=== PATIENT | male | born 1960 | race Caucasian/White ===

== ENCOUNTER 2019-07-01 10:04 | Inpatient (IN) | payer BC, OTHER ==
[~2019-07-01] VITALS: Ht 180.3 cm; Wt 105.6 kg
[2019-07-01] MEDS ORDERED: NS IV 1000 ML 1,000 ML IV SCH ×2 (10:35)
--- NOTE | 2019-07-01 10:44 | ED General ---
General Stated Complaint: SHAKEY;FEVER;CONFUSION Source of Information: Patient, Spouse Exam Limitations: No Limitations History of Present Illness Date Seen by Provider: Jul 01, 2019 Time Seen by Provider: 10:25 Initial Comments Patient presents to ER by private conveyance with chief complaint about 45 days of fever, shaking, confusion. No coughing shortness of breath nausea vomiting dysuria diarrhea constipation or pain. She's been giving him Tylenol and ibuprofen [id number] and the fever tends to come back as soon as one of the medicines are do. states she took him to urgent care on Sunday, 4 days ago and he had a tick bite on his right lower abdomen so they put him on doxycycline. He was not feeling any better and had not ate or drank for the weekend so Sunday morning she got him in with Dr. Peterson who gave him Librium and got some more blood tests ordered. She says a flu test was not obtained. She is concerned with his confusion. No history of weakness or lateralizing symptoms. The patient drinks about 7 days or more beers every night. His last drink was . The does not feel the Librium helped much with his confusion. She says sometimes he would be lucid and then when the fever would come back and become shaky and his confusion would get worse. Dr. Peterson called and gave report stating that he had obtain labs showing hyponatremia 128 hyperchloremia and a white count of 10,000 from yesterday. He has not had any antipyretics this morning because he was afebrile when she checked before going to the doctor's office. A review of medical records from [facility] urgent care showed the patient was put on doxycycline but no lab tests appeared been ordered. Allergies and Home Medications Allergies Coded Allergies: No Known Drug Allergies (Unverified , 07/01/19) Patient Home Medication List Home Medication List Reviewed: Yes Review of Systems Review of Systems Constitutional: chills, diaphoresis, fever, malaise EENTM: No ear discharge, No hearing loss, No ear pain Respiratory: No cough, No short of breath Cardiovascular: No chest pain, No edema Gastrointestinal: No abdominal pain, No nausea, No vomiting Genitourinary: No discharge, No dysuria Musculoskeletal: No back pain, No joint pain Skin: see HPI; No pruritus, No rash Past Twlgnnn-Rmtgos-Rhkvqq Hx Patient Social History Alcohol Use: Regular Use Alcohol Beverage of Choice: Beer (8+ daily) Recreational Drug Use: No Smoking Status: Never a Smoker Physical Exam-Suspected Sepsis Physical Exam Vital Signs Vital Signs - First Documented 07/01/19 10:48 Temp 38.3 Pulse 105 Resp 16 B/P (MAP) 146/93 (110) Pulse Ox 97 Capillary Refill : Height, Weight, BMI Height: '" Weight: lbs. oz. kg; BMI Method: General Appearance: WD/WN, Mild Distress Eyes: Bilateral Eye Normal Inspection, Bilateral Eye PERRL, Bilateral Eye EOMI HEENT: PERRL/EOMI, TMs Normal, Normal ENT Inspection, Pharynx Normal (oral mucosa is dry); No Moist Mucous Membranes Neck: Full Range of Motion, Normal Inspection, Non Tender, Supple, Lymphadenopathy (L), Lymphadenopathy (R) (bilateral anterior cervical l ymphadenopathy less than 1 cm greatest diameter) Respiratory: Chest Non Tender, Lungs Clear, Normal Breath Sounds, No Accessory Muscle Use, No Respiratory Distress Cardiovascular: Regular Rate, Rhythm, No Edema, No Gallop, No Murmur, Normal Peripheral Pulses Gastrointestinal: Normal Bowel Sounds, Non Tender, Soft Extremity: Normal Capillary Refill, Normal Inspection, Normal Range of Motion, Non Tender, No Calf Tenderness, No Pedal Edema Neurologic/Psychiatric: Alert, Oriented x3 (difficulty with time and situation), No Motor/Sensory Deficits, Normal Mood/Affect, counter clerk II-XII Norm as Tested Skin: normal color, warm/dry, other (small 5 mm erythematous papule on the right lower quadrant abdomen without surrounding rash) Focused Exam Lactate Level 07/01/19 10:40: Lactic Acid Level 1.39 Lactic Acid Level Laboratory Tests Test 07/01/19 10:40 Lactic Acid Level 1.39 MMOL/L (0.50-2.00) Progress/Results/Core Measures Suspected Sepsis SIRS Temperature: Pulse: Respiratory Rate: Laboratory Tests 07/01/19 10:40: White Blood Count 8.7 Blood Pressure / Mean: 07/01/19 10:40: Lactic Acid Level 1.39 Laboratory Tests 07/01/19 10:40: Creatinine 1.04, INR Comment 1.0, Platelet Count 148, Total Bilirubin 0.7 Results/Orders Lab Results Laboratory Tests Test 07/01/19 10:30 10/8/19 10:40 Range/Units Group A Streptococcus Screen NEGATIVE NEGATIVE White Blood Count 8.7 4.3-11.0 10^3/uL Red Blood Count 5.09 4.35-5.85 10^6/uL Hemoglobin 15.4 13.3-17.7 G/DL Hematocrit 44 40-54 % Mean Corpuscular Volume 86 80-99 FL Mean Corpuscular Hemoglobin 30 25-34 PG Mean Corpuscular Hemoglobin Concent 35 32-36 G/DL Red Cell Distribution Width 12.4 10.0-14.5 % Platelet Count 148 130-400 10^3/uL Mean Platelet Volume 9.8 7.4-10.4 FL Neutrophils (%) (Auto) 83 H 42-75 % Lymphocytes (%) (Auto) 6 L 12-44 % Monocytes (%) (Auto) 11 0-12 % Eosinophils (%) (Auto) 0 0-10 % Basophils (%) (Auto) 0 0-10 % Neutrophils # (Auto) 7.3 1.8-7.8 X 10^3 Lymphocytes # (Auto) 0.5 L 1.0-4.0 X 10^3 Monocytes # (Auto) 0.9 0.0-1.0 X 10^3 Eosinophils # (Auto) 0.0 0.0-0.3 10^3/uL Basophils # (Auto) 0.0 0.0-0.1 10^3/uL Neutrophils % (Manual) 81 % Lymphocytes % (Manual) 2 % Monocytes % (Manual) 7 % Eosinophils % (Manual) 1 % Basophils % (Manual) 0 % Band Neutrophils 0 % Reactive Lymphocytes 9 % Blood Morphology Comment NORMAL Prothrombin Time 13.1 12.2-14.7 SEC INR Comment 1.0 0.8-1.4 Activated Partial Thromboplast Time 27 24-35 SEC Sodium Level 132 L 135-145 MMOL/L Potassium Level 3.8 3.6-5.0 MMOL/L Chloride Level 96 L 98-107 MMOL/L Carbon Dioxide Level 26 21-32 MMOL/L Anion Gap 10 5-14 MMOL/L Blood Urea Nitrogen 13 7-18 MG/DL Creatinine 1.04 0.60-1.30 MG/DL Estimat Glomerular Filtration Rate > 60 BUN/Creatinine Ratio 13 Glucose Level 132 H 70-105 MG/DL Lactic Acid Level 1.39 0.50-2.00 MMOL/L Calcium Level 9.4 8.5-10.1 MG/DL Corrected Calcium 9.4 8.5-10.1 MG/DL Total Bilirubin 0.7 0.1-1.0 MG/DL Aspartate Amino Transf (AST/SGOT) 26 5-34 U/L Alanine Aminotransferase (ALT/SGPT) 26 0-55 U/L Alkaline Phosphatase 66 40-136 U/L Total Protein 7.2 6.4-8.2 GM/DL Albumin 4.0 3.2-4.5 GM/DL Serum Alcohol < 10 <10 MG/DL Monoscreen POSITIVE H NEGATIVE Micro Results Microbiology 07/01/19 Influenza Types A,B Antigen (MELISSA) - Final, Complete My Orders Orders - JANINE ESCALANTE Cbc With Automated Diff (07/01/19 10:35) Comprehensive Metabolic Panel (07/01/19 10:35) Blood Culture (07/01/19 10:35) Sputum Culture (07/01/19 10:35) Urinalysis (07/01/19 10:35) Urine Culture (07/01/19 10:35) Protime With Inr (07/01/19 10:35) Partial Thromboplastin Time (07/01/19 10:35) Acetaminophen Tablet (Tylenol Tablet) (07/01/19 10:45) Ed Iv/Invasive Line Start (07/01/19 10:35) Ed Iv/Invasive Line Start (07/01/19 10:35) Vital Signs Adult Sepsis Patie Q15M (07/01/19 10:35) O2 (07/01/19 10:35) Remove Rings In Anticipation O (07/01/19 10:35) Lactic Acid Analyzer (07/01/19 10:35) Influenza A And B Antigens (07/01/19 10:35) Ns Iv 1000 Ml (Sodium Chloride 0.9%) (07/01/19 10:35) Cefepime Injection (Maxipime Injection) (07/01/19 10:45) Chest Pa/Lat (2 View) (07/01/19 10:35) Monotest (07/01/19 10:35) Rapid Strep A Screen (07/01/19 10:35) Ed Iv/Invasive Line Start (07/01/19 10:35) Ns Iv 1000 Ml (Sodium Chloride 0.9%) (07/01/19 10:35) Alcohol (07/01/19 10:35) Drug Screen Stat (Urine) (07/01/19 10:35) Ct Head Wo (07/01/19 10:35) Manual Differential (07/01/19 10:40) Medications Given in ED Current Medications Medications Dose Ordered Sig/Alex Route Start Time Stop Time Status Last Admin Dose Admin Acetaminophen 1,000 mg ONCE PRN PO 07/01/19 10:45 07/01/19 11:17 DC 07/01/19 10:50 1,000 MG Cefepime HCl 1000 mg/Sterile Water 10 ml @ 200 mls/hr ONCE ONCE IV 07/01/19 10:45 07/01/19 10:47 DC 07/01/19 11:37 200 MLS/HR Vital Signs/I&O 07/01/19 10:48 Temp 38.3 Pulse 105 Resp 16 B/P (MAP) 146/93 (110) Pulse Ox 97 Capillary Refill : Progress Note : Time: 10:45 Progress Note Plan to cover with cefepime for unknown infectious source. Influenza, mono, rapid strep and 20 mL/kg of fluid which would be 2 L. Septic workup. Tylenol for fever. Diagnostic Imaging Diagonstic Imaging: Xray Plain Films/CT/US/NM/MRI: chest (1v) Comments NAME: EAGLE SALAS [facility] REC#: [id number] PT STATUS: REG ER : 1960 PHYSICIAN: JANINE ESCALANTE MD ADMIT DATE: 07/01/19/ER Draft Date of Exam:07/01/19 CHEST PA/LAT (2 VIEW) INDICATION: Fever, confusion, shaky. TECHNIQUE: Two view chest 11:22 AM CORRELATION STUDY: None FINDINGS: Given technique, heart size, mediastinum and vasculature are within normal limits. Elevated right diaphragm. No consolidating infiltrate. Mildly advanced degenerative changes of the thoracic spine. IMPRESSION: 1. Negative for acute abnormality of the chest. Dictated on workstation # [id number] Dict: 07/01/19 1135 Trans: 07/01/19 1137 DO [id number] Interpreted by: ENOC BURCH DO Electronically signed by: Reviewed: Reviewed by Me Diagonstic Imaging: CT (without IV contrast) Plain Films/CT/US/NM/MRI: head Comments NAME: EAGLE SALAS [facility] REC#: [id number] PT STATUS: REG ER : 1960 PHYSICIAN: JANINE ESCALANTE MD ADMIT DATE: 07/01/19/ER Draft Date of Exam:07/01/19 CT HEAD WO CLINICAL INDICATION: Patient complains of fever, confusion, and tremors since Sunday. EXAM: Axial CT scan of the brain performed without IV contrast. Auto Exposure Controls were utilized during the CT exam to meet ALARA standards for radiation dose reduction. COMPARISON: None. FINDINGS: There is skull streak artifact which obscures portions of the brainstem and posterior fossa as well as portions of the brain near the skull. There is no evidence of acute cerebral infarct, intracranial hemorrhage, or gross mass effect. The brain parenchymal volume appears appropriate for patient's age. There is normal toney/white matter distinction. There is no significant midline shift or herniation. There is no evidence of hydrocephalus. The basal cisterns are unremarkable. The skull, extracranial soft tissue, and orbits are unremarkable. There is a small mucous retention cyst on the floor of the right maxillary sinus. There is a minimal sized mucous retention cyst involving the left maxillary sinus. There is mild ethmoid sinus mucosal thickening. The temporal bones show no significant abnormality. IMPRESSION: Mild paranasal sinus disease; otherwise, unremarkable CT scan of the brain. Dictated on workstation # [id number] Dict: 07/01/19 1132 Trans: 07/01/19 1137 [id number] Interpreted by: KARISSA LONG MD Electronically signed by: Reviewed: Reviewed by Me Departure Communication (Admissions) Time/Spoke to Admitting Phy: 12:10 Discussed case lab findings with Dr. PETERSON and he agrees with floor on telemetry and alcohol withdrawal protocol. Impression Primary Impression: Mononucleosis Qualified Codes: B27.99 - Infectious mononucleosis, unspecified with other complication Additional Impressions: Upper respiratory infection, viral Delirium Hyponatremia Dehydration fever Alcohol withdrawal delirium Sepsis Qualified Codes: A41.9 - Sepsis, unspecified organism; R65.20 - Severe sepsis without septic shock; G93.40 - Encephalopathy, unspecified Disposition: ADMITTED INPATIENT Condition: Stable Admissions Decision to Admit Reason: Admit from ER (General) Decision to Admit/Date: Jul 01, 2019 Time/Decision to Admit Time: 12:10 Departure-Patient Inst. Referrals: OSVALDO PETERSON DO (PCP) Primary Care Physician JANINE ESCALANTE Jul 01, 2019 10:44
[2019-07-01] MEDS ORDERED: ACETAMINOPHEN 500 MG TAB (TYLENOL) PO PRN (10:45)
[2019-07-01] MEDS ORDERED: CEFEPIME INJECTION 1,000 MG in WATER (STERILE) FOR INJECTION 10 ML IV ONE (10:45)
[2019-07-01 10:52] LABS: BASOPHILS % (AUTO) 0 % (0-10); EOSINOPHILS % (AUTO) 0 % (0-10); HEMATOCRIT 44 % (40-54); HEMOGLOBIN 15.4 G/DL (13.3-17.7); LYMPHOCYTES # (AUTO) 0.5 X 10^3 (1.0-4.0); LYMPHOCYTES % (AUTO) 6 % (12-44); MEAN CORPUSCULAR HEMOGLOBIN 30 PG (25-34); MEAN CORPUSCULAR HGB CONC 35 G/DL (32-36); MEAN CORPUSCULAR VOLUME 86 FL (80-99); MEAN PLATELET VOLUME 9.8 FL (7.4-10.4); MONOCYTES # (AUTO) 0.9 X 10^3 (0.0-1.0); MONOCYTES % (AUTO) 11 % (0-12); NEUTROPHILS # (AUTO) 7.3 X 10^3 (1.8-7.8); NEUTROPHILS % (AUTO) 83 % (42-75); PLATELET COUNT 148 10^3/uL (130-400); RED CELL DISTRIBUTION WIDTH 12.4 % (10.0-14.5); WHITE BLOOD COUNT 8.7 10^3/uL (4.3-11.0)
[2019-07-01 11:05] LABS: PROTHROMBIN TIME PATIENT 13.1 SEC (12.2-14.7)
[2019-07-01 11:12] LABS: ALANINE AMINOTRANSFERASE 26 U/L (0-55); ALKALINE PHOSPHATASE 66 U/L (40-136); BILIRUBIN,TOTAL 0.7 MG/DL (0.1-1.0); BUN/CREATININE RATIO 13; CALCIUM 9.4 MG/DL (8.5-10.1); CARBON DIOXIDE 26 MMOL/L (21-32); CHLORIDE 96 MMOL/L (98-107); CREATININE SERUM 1.04 MG/DL (0.60-1.30); GFR ESTIMATED > 60; GLUCOSE 132 MG/DL (70-105); POTASSIUM 3.8 MMOL/L (3.6-5.0); SODIUM 132 MMOL/L (135-145); TOTAL PROTEIN 7.2 GM/DL (6.4-8.2)
[2019-07-01 11:16] LABS: BAND NEUTROPHILS 0 %; BASOPHILS % (MANUAL) 0 %; EOSINOPHILS % (MANUAL) 1 %; LYMPHOCYTES % (MANUAL) 2 %; MONOCYTES % (MANUAL) 7 %; NEUTROPHILS % (MANUAL) 81 %; RBC MORPH NORMAL; REACTIVE LYMPHOCYTES 9 %
--- NOTE | 2019-07-01 11:37 | Diagnostic Imaging Report ---
INDICATION: Fever, confusion, shaky. TECHNIQUE: Two view chest 11:22 AM CORRELATION STUDY: None FINDINGS: Given technique, heart size, mediastinum and vasculature are within normal limits. Elevated right diaphragm. No consolidating infiltrate. Mildly advanced degenerative changes of the thoracic spine. IMPRESSION: 1. Negative for acute abnormality of the chest. Dictated by: Dictated on workstation # [id number]
--- NOTE | 2019-07-01 11:38 | Diagnostic Imaging Report ---
CLINICAL INDICATION: Patient complains of fever, confusion, and tremors since Sunday. EXAM: Axial CT scan of the brain performed without IV contrast. Auto Exposure Controls were utilized during the CT exam to meet ALARA standards for radiation dose reduction. COMPARISON: None. FINDINGS: There is skull streak artifact which obscures portions of the brainstem and posterior fossa as well as portions of the brain near the skull. There is no evidence of acute cerebral infarct, intracranial hemorrhage, or gross mass effect. The brain parenchymal volume appears appropriate for patient's age. There is normal toney/white matter distinction. There is no significant midline shift or herniation. There is no evidence of hydrocephalus. The basal cisterns are unremarkable. The skull, extracranial soft tissue, and orbits are unremarkable. There is a small mucous retention cyst on the floor of the right maxillary sinus. There is a minimal sized mucous retention cyst involving the left maxillary sinus. There is mild ethmoid sinus mucosal thickening. The temporal bones show no significant abnormality. IMPRESSION: Mild paranasal sinus disease; otherwise, unremarkable CT scan of the brain. Dictated by: Dictated on workstation # [id number]
[2019-07-01 12:16] LABS: BILIRUBIN,URINE NEGATIVE (NEGATIVE); CLARITY,URINE CLEAR; COLOR,URINE AMBER; GLUCOSE, URINE (UA) 1+ (NEGATIVE); KETONES,URINE NEGATIVE (NEGATIVE); LEUKOCYTE ESTERASE ,URINE 1+ (NEGATIVE); NITRITE,URINE NEGATIVE (NEGATIVE); PH,URINE 5 (5-9); PROTEIN,URINE 2+ (NEGATIVE); UROBILINOGEN,URINE 4 MG/DL (NORMAL)
[2019-07-01 12:22] LABS: BACTERIA,URINE NEGATIVE /HPF; RBC,URINE RARE /HPF; WBC,URINE 0-2 /HPF
[2019-07-01 12:31] LABS: AMPHETAMINE SCREEN, URINE NEGATIVE (NEGATIVE); BARBITURATE SCREEN URINE NEGATIVE (NEGATIVE); BENZODIAZEPINES SCREEN URINE POSITIVE (NEGATIVE); CANNABINOID SCREEN, URINE NEGATIVE (NEGATIVE); COCAINE SCREEN URINE NEGATIVE (NEGATIVE); METHADONE STAT NEGATIVE (NEGATIVE); METHAMPHETAMINE SCREEN URINE S NEGATIVE (NEGATIVE); OPIATE SCREEN URINE NEGATIVE (NEGATIVE); OXYCODONE STAT NEGATIVE (NEGATIVE); PROPOXYPHENE STAT NEGATIVE (NEGATIVE); TRICYCLIC ANTIDEPRESSANTS SCRE NEGATIVE (NEGATIVE)
--- NOTE | 2019-07-01 13:00 | NUR ---
EAGLE SALAS admitted to room 410-1, with an admitting diagnosis of sepsis , on 07/01/19 from ED via strecer, accompanied by staff .EAGLE SALAS introduced to surroundings, call light, bed controls, phone, TV, temperature control, lights, meal times, smoking policy, visitor policy, side rail policy, bathrooms and showers. Patient Rights given to patient in the handbook. EAGLE SALAS verbalizes understanding that [facility] is not responsible for the loss or damage to any personal effects or valuables that are kept in the patients posession during their hospitalization. The following Patient Care Plans and discharge were discussed with the patient. EAGLE SALAS verbalizes understanding of Interdisciplinary Patient Education. Patient was informed about the Rapid Response Team and its purpose.
[2019-07-01 13:18] VITALS: BP 128/81
[2019-07-01] MEDS ORDERED: 1/2 NS IV SOLUTION 1,000 ML IV PRN (13:33)
[2019-07-01] MEDS ORDERED: CATHETER FLUSH 10 ML SYR IV PRN (13:45)
[2019-07-01] MEDS ORDERED: LORazepam INJ 2 MG/ML (ATIVAN) VIAL IV PRN (13:45)
[2019-07-01] MEDS ORDERED: D5 1/2 NS 1000 ML IV SOLUTION 1,000 ML IV PRN (13:45)
[2019-07-01] MEDS ORDERED: ONDANSETRON 4 MG (ZOFRAN) ORAL DISSOLVE TAB SL PRN (13:45)
[2019-07-01] MEDS ORDERED: ONDANSETRON 4 MG/2 ML (SDV) Z0FRAN IV PRN ×2 (13:45)
[2019-07-01] MEDS ORDERED: LORazepam 1 MG (ATIVAN) TAB PO PRN (13:45)
[2019-07-01] MEDS ORDERED: LORazepam INJ 2 MG/ML (ATIVAN) VIAL IM/IV PRN (13:45)
[2019-07-01] MEDS ORDERED: ANTACID SUSP 30 ML UDC (MYLANTA) PO PRN (13:45)
[2019-07-01] MEDS ORDERED: SENNA W/DOCUSATE (SENOKOT S) TABLET PO PRN (13:45)
[2019-07-01] MEDS ORDERED: CHLO10CA6 PO (13:56)
[2019-07-01] MEDS ORDERED: PRAV40TA2 PO (13:56)
[2019-07-01] MEDS ORDERED: DOXY100T2 PO (13:56)
[2019-07-01] MEDS ORDERED: LISI-552 PO (13:56)
[2019-07-01] MEDS ORDERED: CITA20TA9 PO (14:15)
--- NOTE | 2019-07-01 14:15 | NUR ---
SPOKE WITH THE PATIENTS ABOUT MEDICATIONS. SHE LISTED WHAT HE IS TAKING AND I VERIFIED WITH THE EXT MED HX. SHE STATES HE TAKES CELEXA EVERYDAY HOWEVER IT IS NOT SHOWN ON THE EXT MED HX, SHE STATES THEY DO GET IT AT [facility] AND HE DOES TAKE IT. I CALLED [facility] AND THEY LAST FILLED CELEXA 20MG DAILY #30 IN SEPTEMBER OF 2018. I ADDED IT TO THE MED REC BUT NOTED THE PAST DUE FILL DATE.
[2019-07-01] MEDS: LACTATED RINGERS 1,000 ML IV SCH ×2 (15:19→20:30)
[2019-07-01] MEDS ORDERED: FLU QUADRIvalent (5+ YOA) 2019-2020 (AFLURIA) 0.5 ML IM ONE (15:45)
--- NOTE | 2019-07-01 15:54 | NUR ---
request flu vaccine at discharge
[2019-07-01 16:50] VITALS: BP 144/87
[2019-07-01] MEDS: IBUPROFEN 800 MG (MOTRIN) TAB PO PRN (18:15)
[2019-07-01] MEDS: ACETAMINOPHEN 500 MG TAB (TYLENOL) PO PRN (18:16)
[2019-07-01 20:10] VITALS: BP 123/67
[2019-07-01] MEDS: MAGNESIUM OXIDE (MAG-OX)400 MG TAB PO SCH (21:00)
[2019-07-01] MEDS: SIMvastatin 20 MG (ZOCOR) TAB PO SCH (21:00)
[2019-07-02] VITALS (7 sets, daily range): BP systolic 122–155; BP diastolic 74–84
[2019-07-02] MEDS: MULTIVIT W/MINERALS TAB (THERAGRAN M) PO SCH (06:16)
[2019-07-02] MEDS: THIAMINE 100 MG (VITAMIN B-1) TAB PO SCH (06:16)
[2019-07-02] MEDS: LACTATED RINGERS 1,000 ML IV SCH ×2 (06:16→13:45)
[2019-07-02 06:50] LABS: BASOPHILS % (AUTO) 0 % (0-10); EOSINOPHILS % (AUTO) 0 % (0-10); HEMATOCRIT 39 % (40-54); HEMOGLOBIN 13.9 G/DL (13.3-17.7); LYMPHOCYTES # (AUTO) 0.7 X 10^3 (1.0-4.0); LYMPHOCYTES % (AUTO) 14 % (12-44); MEAN CORPUSCULAR HEMOGLOBIN 31 PG (25-34); MEAN CORPUSCULAR HGB CONC 36 G/DL (32-36); MEAN CORPUSCULAR VOLUME 87 FL (80-99); MEAN PLATELET VOLUME 10.3 FL (7.4-10.4); MONOCYTES # (AUTO) 0.7 X 10^3 (0.0-1.0); MONOCYTES % (AUTO) 13 % (0-12); NEUTROPHILS # (AUTO) 3.8 X 10^3 (1.8-7.8); NEUTROPHILS % (AUTO) 72 % (42-75); PLATELET COUNT 122 10^3/uL (130-400); RED CELL DISTRIBUTION WIDTH 12.2 % (10.0-14.5); WHITE BLOOD COUNT 5.2 10^3/uL (4.3-11.0)
[2019-07-02 07:13] LABS: ALANINE AMINOTRANSFERASE 23 U/L (0-55); ALBUMIN 3.5 GM/DL (3.2-4.5); ALKALINE PHOSPHATASE 62 U/L (40-136); BILIRUBIN,TOTAL 0.7 MG/DL (0.1-1.0); BUN/CREATININE RATIO 13; CALCIUM 8.5 MG/DL (8.5-10.1); CARBON DIOXIDE 25 MMOL/L (21-32); CHLORIDE 103 MMOL/L (98-107); CREATININE SERUM 0.78 MG/DL (0.60-1.30); GFR ESTIMATED > 60; GLUCOSE 94 MG/DL (70-105); POTASSIUM 3.9 MMOL/L (3.6-5.0); SODIUM 136 MMOL/L (135-145); TOTAL PROTEIN 6.2 GM/DL (6.4-8.2)
--- NOTE | 2019-07-02 07:40 | NUR ---
Initial visit with the pt and his daughter from [place]. His daughter is a nurse, and demonstrates care and compassion for her dad's wishes and preferences. He demonstrated some confusion as to time and place, however shared he is Taoist. He did not request contact from a parish when offered, and his daughter volunteered that he may wish to receive communion when he is less confused. I engaged in rapport building and provided them with privacy by closing the curtain.
--- NOTE | 2019-07-02 08:23 | History & Physical ---
History of Present Illness History of Present Illness Reason for visit/HPI Patient went to [facility] this Sunday for vomiting and elevated temperature to tick bite and headache. Patient given doxycycline. Patient has history of drinking 9-10 beers a night. Patient not able to eat the whole weekend. Patient seen in the office on Sunday with DTs and shaking. Patient on Sunday worse. Patient running 102.3 temperature, shaking, according to patient was confus ed and hallucinating and foggy. Patient sent out to the emergency room. Monoscreen positive. Patient admitted Date of Admission Jul 01, 2019 at 12:25 Time Seen by a Provider: 08:17 I consulted on this patient on 07/02/19 08:16 Attending Physician Davie Peterson DO Admitting Physician Davie Peterson DO Consult Allergies and Home Medications Allergies Coded Allergies: No Known Drug Allergies (Unverified , 07/01/19) Home Medications Chlordiazepoxide HCl 10 Mg Capsule, 10 MG PO TID, (Reported) 7 DAY SUPPLY FILLED 06-30-19 Citalopram Hydrobromide 20 Mg Tablet, 20 MG PO DAILY, (Reported) LAST FILLED #23 OCTOBER 2018 Doxycycline Hyclate 100 Mg Tablet, 100 MG PO 1200,1800, (Reported) 10 DAY SUPPLY FILLED 06-28-19 Lisinopril 20 Mg Tablet, 20 MG PO HS, (Reported) Pravastatin Sodium 40 Mg Tablet, 40 MG PO HS, (Reported) Patient Home Medication List Home Medication List Reviewed: Yes Past Pychjah-Btfcpd-Zfbbiy Hx Past Med/Social Hx: Reviewed Nursing Past Med/Soc Hx Patient Social History Marrital Status: Employed/Student: employed Alcohol Use: Regular Use Number of Drinks Today: AA Alcohol Beverage of Choice: Beer Recreational Drug Use: No Smoking Status: Never a Smoker Type Used: Smokeless Tobacco Physical Abuse Screen: No Sexual Abuse: No Recent Foreign Travel: No Contact w/other who traveled: No Recent Hopitalizations: No Recent Infectious Disease Expo: No Seasonal Allergies Seasonal Allergies: Yes Past Medical History Surgeries: Tonsillectomy Cardiac: High Cholesterol, Hypertension Psychosocial: Anxiety Adverse Reaction to Blood [place]: No Family History Cardiovascular disease Diabetes mellitus Myocardial infarction Review of Systems Constitutional: fever, malaise, weakness, other (Confusion, unsteady gait, unable to get the words out) EENTM: no symptoms reported Respiratory: no symptoms reported Cardiovascular: no symptoms reported, other (Tachycardia) Gastrointestinal: no symptoms reported Genitourinary: no symptoms reported Physical Exam Vital Signs Vital Signs - First Documented 07/01/19 07/01/19 10:48 13:18 Temp 38.3 Pulse 105 Resp 16 B/P (MAP) 146/93 (110) Pulse Ox 97 O2 Delivery Room Air Capillary Refill : Less Than 3 Seconds Height, Weight, BMI Height: '" Weight: lbs. oz. kg; 30.05 BMI Method: General Appearance: WD/WN Eyes: Bilateral Eye Normal Inspection HEENT: Normal ENT Inspection Neck: Full Range of Motion, Normal Inspection Respiratory: Lungs Clear, No Accessory Muscle Use, No Respiratory Distress Cardiovascular: Tachycardia Gastrointestinal: Non Tender, Soft Assessment/Plan Assessment and Plan Delirium. Weakness. Febrile Mononucleosis. Alcoholism. Hyponatremia. Vomiting. Dehydration Admission Diagnosis Admission Status: Inpatient Order (span 2 midnights) Reason for Inpatient Admission: Failure with outpatient treatment. Febrile. Mononucleosis. Insomnia. PTs. Weakness. Confusion. Inability to say what he wants to say what he wants to. Change in mental status Clinical Quality Measures DVT/VTE Risk/Contraindication: Risk Factor Score Per Nursin RFS Level Per Nursing on Admit: 1=Low/No VTE PPX DAVIE PETERSON DO Jul 02, 2019 08:22
[2019-07-02] MEDS ORDERED: FOLIC ACID 1 MG TAB PO SCH (09:00)
[2019-07-02] MEDS: IBUPROFEN 800 MG (MOTRIN) TAB PO PRN ×2 (09:09→20:24)
[2019-07-02] MEDS: MAGNESIUM OXIDE (MAG-OX)400 MG TAB PO SCH ×2 (09:10→20:24)
[2019-07-02] MEDS: ACETAMINOPHEN 500 MG TAB (TYLENOL) PO PRN (09:10)
--- NOTE | 2019-07-02 10:44 | Diagnostic Imaging Report ---
INDICATION: Sepsis. TIME OF EXAM: 9:51 AM Comparison is made with prior chest one day earlier. FINDINGS: The heart size is stable. Chronic elevation right hemidiaphragm is noted. The lungs are clear. The pulmonary vascularity is normal. No infiltrate, effusion or pneumothorax is seen. IMPRESSION: Stable chest. No acute cardiopulmonary process is detected. Dictated by: Dictated on workstation # [id number]
--- NOTE | 2019-07-02 11:49 | NUR ---
SYDNEE/ALIVIA spoke to patient and patients spouse in regards to plan upon discharge. Plan: The patient verbalizes that he is feeling ready to go home with spouse. No needs at this time. Summary: SYDNEE/ALIVIA spoke to the patients nurse who states that he is working with dr Dubon for alcohol treatment and does not wish to go to a treatment facility. The patient and patients spouse say that he is doing well and ready to get home. The patient verbalized that there were no other needs at this time. Addendum: 07/02/19 at 1155 by LENNIE BUNCH reviewed / approved
--- NOTE | 2019-07-02 14:06 | NUR ---
"RD ASSESSMENT PMHx: HTN, hypercholesterolemia, ETOH abuse (9-10 beers/night) PT INTERACTION: Pt was awake and pleasant during consult for MST Score. Pt states current appetite was poor and had been since 06/27. Pt states some issues with nausea on 06/28, but has not had any episodes of vomiting. Pt states no issues with constipation or diarrhea at this time. Pt states no recent weight changes. Note unable to determine recent wt hx, per chart review. ABNORMAL NUTRITION-RELATED LAB VALUES: Hct 39 (L); Pro 6.2 (L); AST 35 (H) Est. kcal needs: [phone] kcal (20-25 kcal/kg) Est. Pro needs: 78-98 g Pro (0.8-1.0 g Pro/kg) PES STATEMENT: Inadequate oral intake related to loss of appetite | nausea as evidenced by pt interview INTERVENTION: Continue with current diet order of regular diet. Encouraged pt to eat when able. Recommend adding MVI, for potential thiamin and folic acid deficiencies as a result of ETOH abuse. MONITOR/EVALUATE: PO Intake; Plan of Care; Hydration Status; Weight Status; Lab Values Benoit Mejía, MS, RD, LD [phone]"
[2019-07-02] MEDS: SIMvastatin 20 MG (ZOCOR) TAB PO SCH (20:24)
[2019-07-02] MEDS ORDERED: SIMvastatin 20 MG (ZOCOR) TAB PO SCH (21:00)
[2019-07-03 03:20] VITALS: BP 143/79
[2019-07-03 05:33] LABS: BASOPHILS % (AUTO) 0 % (0-10); EOSINOPHILS % (AUTO) 1 % (0-10); HEMATOCRIT 38 % (40-54); HEMOGLOBIN 13.1 G/DL (13.3-17.7); LYMPHOCYTES # (AUTO) 0.9 X 10^3 (1.0-4.0); LYMPHOCYTES % (AUTO) 20 % (12-44); MEAN CORPUSCULAR HEMOGLOBIN 30 PG (25-34); MEAN CORPUSCULAR HGB CONC 35 G/DL (32-36); MEAN CORPUSCULAR VOLUME 87 FL (80-99); MEAN PLATELET VOLUME 9.8 FL (7.4-10.4); MONOCYTES # (AUTO) 0.7 X 10^3 (0.0-1.0); MONOCYTES % (AUTO) 15 % (0-12); NEUTROPHILS # (AUTO) 2.9 X 10^3 (1.8-7.8); NEUTROPHILS % (AUTO) 64 % (42-75); PLATELET COUNT 151 10^3/uL (130-400); RED CELL DISTRIBUTION WIDTH 12.1 % (10.0-14.5); WHITE BLOOD COUNT 4.6 10^3/uL (4.3-11.0)
[2019-07-03 05:56] LABS: ALANINE AMINOTRANSFERASE 26 U/L (0-55); ALBUMIN 3.3 GM/DL (3.2-4.5); ALKALINE PHOSPHATASE 51 U/L (40-136); BILIRUBIN,TOTAL 0.5 MG/DL (0.1-1.0); BUN/CREATININE RATIO 11; CALCIUM 8.5 MG/DL (8.5-10.1); CARBON DIOXIDE 26 MMOL/L (21-32); CHLORIDE 102 MMOL/L (98-107); GFR ESTIMATED > 60; GLUCOSE 91 MG/DL (70-105); SODIUM 136 MMOL/L (135-145); TOTAL PROTEIN 5.9 GM/DL (6.4-8.2)
[2019-07-03] MEDS: LACTATED RINGERS 1,000 ML IV SCH (06:52)
[2019-07-03] MEDS: MULTIVIT W/MINERALS TAB (THERAGRAN M) PO SCH (06:52)
[2019-07-03] MEDS: THIAMINE 100 MG (VITAMIN B-1) TAB PO SCH (06:52)
[2019-07-03] MEDS ORDERED: FOLIC ACID 1 MG TAB PO SCH (07:00)
[2019-07-03] MEDS ORDERED: MULTIVIT W/MINERALS TAB (THERAGRAN M) PO SCH (07:52)
[2019-07-03] MEDS ORDERED: THIAMINE 100 MG (VITAMIN B-1) TAB PO SCH (07:53)
--- NOTE | 2019-07-03 07:58 | Progress Note ---
Subjective Time Seen by a Provider: 07:53 Subjective/Events-last exam Patient feeling better today. Patient not having tremors. Plan to discharge patient today. Patient wants to go to AA. Patient put on folic acid, thiamine, and multivitamin. 2 office on Sunday at 11 a.m. No work till seen this Sunday. Patient states when his mother and stopped. Drinking for 4 months Focused Exam Lactate Level 07/01/19 10:40: Lactic Acid Level 1.39 Objective Exam Vital Signs Date Time Temp Pulse Resp B/P (MAP) Pulse Ox O2 Delivery O2 Flow Rate FiO2 07/03/19 03:20 36.0 61 20 143/79 (100) 98 Room Air 07/02/19 23:20 36.3 65 20 137/78 (97) 96 Room Air 07/02/19 21:00 36.8 07/02/19 20:20 Room Air 07/02/19 19:54 37.6 72 20 155/84 (107) 97 Room Air 07/02/19 15:40 36.8 71 18 129/74 (92) 97 Room Air 07/02/19 12:00 37.4 72 18 124/74 (91) 97 Room Air 07/02/19 08:00 38.3 72 20 126/76 (93) 97 Room Air 07/02/19 08:00 Room Air I & O 07/03/19 07:00 Intake Total 1780 ml Balance 1780 ml Capillary Refill : Less Than 3 Seconds General Appearance: No Apparent Distress, WD/WN HEENT: Normal ENT Inspection Neck: Full Range of Motion, Normal Inspection Respiratory: Lungs Clear, No Accessory Muscle Use, No Respiratory Distress Cardiovascular: Regular Rate, Rhythm, No Murmur Gastrointestinal: non tender, soft Results Lab Laboratory Tests 07/03/19 04:56 Laboratory Tests 07/02/19 13:28: Glucometer 158H 07/02/19 18:38: Glucometer 103 07/02/19 23:26: Glucometer 89 07/03/19 04:56: White Blood Count 4.6, Red Blood Count 4.33L, Hemoglobin 13.1L, Hematocrit 38L, Mean Corpuscular Volume 87, Mean Corpuscular Hemoglobin 30, Mean Corpuscular Hemoglobin Concent 35, Red Cell Distribution Width 12.1, Platelet Count 151, Mean Platelet Volume 9.8, Neutrophils (%) (Auto) 64, Lymphocytes (%) (Auto) 20, Monocytes (%) (Auto) 15H, Eosinophils (%) (Auto) 1, Basophils (%) (Auto) 0, Neutrophils # (Auto) 2.9, Lymphocytes # (Auto) 0.9L, Monocytes # (Auto) 0.7, Eosinophils # (Auto) 0.0, Basophils # (Auto) 0.0, Sodium Level 136, Potassium Level 4.0, Chloride Level 102, Carbon Dioxide Level 26, Anion Gap 8, Blood Urea Nitrogen 9, Creatinine 0.80, Estimat Glomerular Filtration Rate > 60, BUN/Creatinine Ratio 11, Glucose Level 91, Calcium Level 8.5, Corrected Calcium 9.1, Total Bilirubin 0.5, Aspartate Amino Transf (AST/SGOT) 36H, Alanine Aminotransferase (ALT/SGPT) 26, Alkaline Phosphatase 51, Total Protein 5.9L, Albumin 3.3 07/03/19 05:55: Glucometer 82 Microbiology 07/01/19 Blood Culture - Preliminary, Resulted No growth 07/01/19 Throat Culture - Preliminary, Resulted No Beta Strep isolated 07/01/19 Urine Culture - Final, Complete NO GROWTH Assessment/Plan Assessment/Plan Assess & Plan/Chief Complaint DTs. Hyponatremia. Dehydration. Alcoholism. History of hypertension Bullitt positive.. Febrile Plan to send AA Clinical Quality Measures Admission Status Admission Dx Delirium. Weakness. Febrile Mononucleosis. Alcoholism. Hyponatremia. Vomiting. Dehydration DVT/VTE Risk/Contraindication: Risk Factor Score Per Nursin RFS Level Per Nursing on Admit: 1=Low/No VTE PPX OSVALDO PETERSON DO Jul 03, 2019 07:58
[2019-07-03 08:13] VITALS: BP 139/86
[2019-07-03] MEDS ORDERED: FLU QUADRIvalent (5+ YOA) 2019-2020 (AFLURIA) 0.5 ML IM ONE (08:54)
--- NOTE | 2019-07-03 08:54 | NUR ---
CM/SS responded to consult for SS. Provided patient with information on AA and [facility] Addiction treatment. Discussed with him that AA meets 3xs a day at [address] [place] [address] in [place], [place].
[2019-07-03] MEDS: MAGNESIUM OXIDE (MAG-OX)400 MG TAB PO SCH (09:25)
--- NOTE | 2019-07-03 10:17 | Physician Query Clarification ---
PQ-Conflicting Diagnosis Admission/Discharge Admission Date: Jul 01, 2019 at 12:25 Discharge Date: The medical record reflects the following clinical scenario: History/Risk Factors: Fever History of tick bite Mononucleosis Clinical Findings: T 38.3, Pulse 105 Resp 16, BP 146/93, Lactic acid 1.39, WBC 8.7, Blood cultures- no growth Treatment: IV Cefepime HCI Question: Do you agree with the impression of Severe Sepsis per Dr. Stanton, ED physician? Please document a response in Progress Note or Discharge Summary. 1. Yes 2. No 3. Other, with explanation of clinical findings 4. Clinically undetermined, no explanation for clinical findings. PHYSICIAN RESPONSE Do you agree w/Consulting Dx?: No Please remember a lack of response to the above will prompt a phone page by CDI/Coding staff. In responding to this query, please exercise your independent professional judgment. The purpose of this communication is to more accurately reflect the complexity of your patients condition. The fact that a question is asked does not imply that any particular answer is desired or expected. Thank you for your timely response to this clarification. Requestors name: Alexandria Ward [facility] Phone # ext [phone] or [phone] THIS PHYSICIAN QUERY FORM IS A PERMANENT PART OF THE MEDICAL RECORD ALEXANDRIA WARD Jul 03, 2019 10:17 OSVALDO PETERSON DO Jul 04, 2019 07:38
[2019-07-03] MEDS ORDERED: Multivitamins/Minerals Therap PO (11:17)
[2019-07-03] MEDS ORDERED: THIA100T80 PO (11:18)
[2019-07-03] MEDS ORDERED: FOLI1TAB24 PO (11:20)
[2019-07-03 12:47] VITALS: BP 139/86
[2019-07-04] MEDS ORDERED: THIAMINE 100 MG (VITAMIN B-1) TAB PO SCH (07:00)
[2019-07-04] MEDS ORDERED: MULTIVIT W/MINERALS TAB (THERAGRAN M) PO SCH (07:00)
--- NOTE | 2019-07-04 07:47 | Discharge Summary ---
Diagnosis/Chief Complaint Date of Admission Jul 01, 2019 at 12:25 Date of Discharge Jul 03, 2019 at 12:00 Discharge Time: 07:43 Discharge Diagnosis Alcohol dependence. Anxiety disorder. Tick bite. Dehydration. Disorientation. Hypertension. Mononucleosis. Nicotine dependence. Hyperlipidemia. Febrile. Tachycardia. Vomiting. Unsteadiness of gait. DTs Reason Hospital Visit Patient went to [facility] this Sunday for vomiting and elevated temperature to tick bite and headache. Patient given doxycycline. Patient has history of drinking 9-10 beers a night. Patient not able to eat the whole weekend. Patient seen in the office on Sunday with DTs and shaking. Patient on Sunday worse. Patient running 102.3 temperature, shaking, according to patient was confused and hallucinating and foggy. Patient sent out to the emergency room. Monoscreen positive. Patient admitted Discharge Summary Discharge Physical Examination Allergies: Coded Allergies: No Known Drug Allergies (Unverified , 07/01/19) Vitals & I&Os Vital Signs Date Time Temp Pulse Resp B/P (MAP) Pulse Ox O2 Delivery O2 Flow Rate FiO2 07/03/19 12:47 37.6 67 18 139/86 97 Room Air Hospital Course Was the Problem List Reviewed?: Yes Patient in hospital improved. Patient afebrile. Patient taking fluids and eating. Patient alert. Patient making sense Labs (last 24 hrs) Laboratory Tests 07/01/19 10:30: Group A Streptococcus Screen NEGATIVE 07/01/19 10:40: White Blood Count 8.7, Red Blood Count 5.09, Hemoglobin 15.4, Hematocrit 44, Mean Corpuscular Volume 86, Mean Corpuscular Hemoglobin 30, Mean Corpuscular Hemoglobin Concent 35, Red Cell Distribution Width 12.4, Platelet Count 148, Mean Platelet Volume 9.8, Neutrophils (%) (Auto) 83H, Lymphocytes (%) (Auto) 6L, Monocytes (%) (Auto) 11, Eosinophils (%) (Auto) 0, Basophils (%) (Auto) 0, Neutrophils # (Auto) 7.3, Lymphocytes # (Auto) 0.5L, Monocytes # (Auto) 0.9, Eosinophils # (Auto) 0.0, Basophils # (Auto) 0.0, Neutrophils % (Manual) 81, Lymphocytes % (Manual) 2, Monocytes % (Manual) 7, Eosinophils % (Manual) 1, Basophils % (Manual) 0, Band Neutrophils 0, Reactive Lymphocytes 9, Blood Morphology Comment NORMAL, Prothrombin Time 13.1, INR Comment 1.0, Activated Partial Thromboplast Time 27, Sodium Level 132L, Potassium Level 3.8, Chloride Level 96L, Carbon Dioxide Level 26, Anion Gap 10, Blood Urea Nitrogen 13, Creatinine 1.04, Estimat Glomerular Filtration Rate > 60, BUN/Creatinine Ratio 13, Glucose Level 132H, Lactic Acid Level 1.39, Calcium Level 9.4, Corrected Calcium 9.4, Total Bilirubin 0.7, Aspartate Amino Transf (AST/SGOT) 26, Alanine Aminotransferase (ALT/SGPT) 26, Alkaline Phosphatase 66, Total Protein 7.2, Albumin 4.0, Serum Alcohol < 10, Monoscreen POSITIVEH 07/01/19 12:10: Urine Color AMBERH, Urine Clarity CLEAR, Urine pH 5, Urine Specific Henrietta 1.015L, Urine Protein 2+H, Urine Glucose (UA) 1+H, Urine Ketones NEGATIVE, Urine Nitrite NEGATIVE, Urine Bilirubin NEGATIVE, Urine Urobilinogen 4H, Urine Leukocyte Esterase 1+H, Urine RBC (Auto) 1+H, Urine RBC RARE, Urine WBC 0-2, Urine Crystals NONE, Urine Bacteria NEGATIVE, Urine Casts NONE, Urine Mucus NEGATIVE, Urine Culture Indicated CULTURE PENDING, Urine Opiates Screen NEGATIVE, Urine Oxycodone Screen NEGATIVE, Urine Methadone Screen NEGATIVE, Urine Propoxyphene Screen NEGATIVE, Urine Barbiturates Screen NEGATIVE, Ur Tricyclic Antidepressants Screen NEGATIVE, Urine Phencyclidine Screen NEGATIVE, Urine Amphetamines Screen NEGATIVE, Urine Methamphetamines Screen NEGATIVE, Urine Benzodiazepines Screen POSITIVEH, Urine Cocaine Screen NEGATIVE, Urine Cannabinoids Screen NEGATIVE 07/01/19 12:21: Lyme Disease Screen IgG & IgM Ab 0.18, Lyme Antibody Interpretation Negative, Ehrlichia chaffeensis IgG Antibody <1:16, Ehrlichia chaffeensis IgM Antibody <1:10, Spotted Fever Group IgG Antibody <1:16, Spotted Fever Group IgM Antibody <1:10, [place] Antibody <1:20 07/01/19 18:04: Glucometer 115H 07/02/19 00:45: Glucometer 92 07/02/19 05:51: Glucometer 88 07/02/19 06:10: White Blood Count 5.2, Red Blood Count 4.46, Hemoglobin 13.9, Hematocrit 39L, Mean Corpuscular Volume 87, Mean Corpuscular Hemoglobin 31, Mean Corpuscular Hemoglobin Concent 36, Red Cell Distribution Width 12.2, Platelet Count 122L, Mean Platelet Volume 10.3, Neutrophils (%) (Auto) 72, Lymphocytes (%) (Auto) 14, Monocytes (%) (Auto) 13H, Eosinophils (%) (Auto) 0, Basophils (%) (Auto) 0, Neutrophils # (Auto) 3.8, Lymphocytes # (Auto) 0.7L, Monocytes # (Auto) 0.7, Eosinophils # (Auto) 0.0, Basophils # (Auto) 0.0, Sodium Level 136, Potassium Level 3.9, Chloride Level 103, Carbon Dioxide Level 25, Anion Gap 8, Blood Urea Nitrogen 10, Creatinine 0.78, Estimat Glomerular Filtration Rate > 60, BUN/Creatinine Ratio 13, Glucose Level 94, Calcium Level 8.5, Corrected Calcium 8.9, Total Bilirubin 0.7, Aspartate Amino Transf (AST/SGOT) 35H, Alanine Aminotransferase (ALT/SGPT) 23, Alkaline Phosphatase 62, Total Protein 6.2L, Albumin 3.5, HIV (1&2) Ag and Ab Screen Referral Non-Reactive 07/02/19 13:28: Glucometer 158H 07/02/19 18:38: Glucometer 103 07/02/19 23:26: Glucometer 89 07/03/19 04:56: White Blood Count 4.6, Red Blood Count 4.33L, Hemoglobin 13.1L, Hematocrit 38L, Mean Corpuscular Volume 87, Mean Corpuscular Hemoglobin 30, Mean Corpuscular Hemoglobin Concent 35, Red Cell Distribution Width 12.1, Platelet Count 151, Mean Platelet Volume 9.8, Neutrophils (%) (Auto) 64, Lymphocytes (%) (Auto) 20, Monocytes (%) (Auto) 15H, Eosinophils (%) (Auto) 1, Basophils (%) (Auto) 0, Neut rophils # (Auto) 2.9, Lymphocytes # (Auto) 0.9L, Monocytes # (Auto) 0.7, Eosino phils # (Auto) 0.0, Basophils # (Auto) 0.0, Sodium Level 136, Potassium Level 4.0, Chloride Level 102, Carbon Dioxide Level 26, Anion Gap 8, Blood Urea Nitrogen 9, Creatinine 0.80, Estimat Glomerular Filtration Rate > 60, BUN/Creatinine Ratio 11, Glucose Level 91, Calcium Level 8.5, Corrected Calcium 9.1, Total Bilirubin 0.5, Aspartate Amino Transf (AST/SGOT) 36H, Alanine Tamayo otransferase (ALT/SGPT) 26, Alkaline Phosphatase 51, Total Protein 5.9L, Albumin 3.3 07/03/19 05:55: Glucometer 82 Microbiology 07/01/19 Blood Culture - Preliminary, Resulted No growth 07/01/19 Throat Culture - Final, Complete No Beta Strep isolated 07/01/19 Urine Culture - Final, Complete NO GROWTH Laboratory Tests 07/01/19 10:40 07/02/19 06:10 07/03/19 04:56 Pending Labs Microbiology Date/Time Source Procedure Growth Status 07/01/19 11:10 Peripheral Lt Ac Blood Culture - Preliminary No growth Resulted 07/01/19 10:40 Peripheral Rt Ac Blood Culture - Preliminary No growth Resulted 07/01/19 10:30 Throat Throat Culture - Final No Beta Strep isolated Complete 07/01/19 10:29 Nasopharynx Influenza Types A,B Antigen (MELISSA) - Final Complete 07/01/19 12:10 Urine Clean Catch Urine Culture - Final NO GROWTH Complete Laboratory Tests 07/01/19 10:30: Group A Streptococcus Screen NEGATIVE 07/01/19 10:40: White Blood Count 8.7, Red Blood Count 5.09, Hemoglobin 15.4, Hematocrit 44, Mean Corpuscular Volume 86, Mean Corpuscular Hemoglobin 30, Mean Corpuscular Hemoglobin Concent 35, Red Cell Distribution Width 12.4, Platelet Count 148, Mean Platelet Volume 9.8, Neutrophils (%) (Auto) 83, Lymphocytes (%) (Auto) 6, Monocytes (%) (Auto) 11, Eosinophils (%) (Auto) 0, Basophils (%) (Auto) 0, Neutrophils # (Auto) 7.3, Lymphocytes # (Auto) 0.5, Monocytes # (Auto) 0.9, Eosinophils # (Auto) 0.0, Basophils # (Auto) 0.0, Neutrophils % (Manual) 81, Lymphocytes % (Manual) 2, Monocytes % (Manual) 7, Eosinophils % (Manual) 1, Basophils % (Manual) 0, Band Neutrophils 0, Reactive Lymphocytes 9, Blood Morphology Comment NORMAL, Prothrombin Time 13.1, INR Comment 1.0, Activated Partial Thromboplast Time 27, Sodium Level 132, Potassium Level 3.8, Chloride Level 96, Carbon Dioxide Level 26, Anion Gap 10, Blood Urea Nitrogen 13, Creatinine 1.04, Estimat Glomerular Filtration Rate > 60, BUN/Creatinine Ratio 13, Glucose Level 132, Lactic Acid Level 1.39, Calcium Level 9.4, Corrected Calcium 9.4, Total Bilirubin 0.7, Aspartate Amino Transf (AST/SGOT) 26, Alanine Aminotransferase (ALT/SGPT) 26, Alkaline Phosphatase 66, Total Protein 7.2, Albumin 4.0, Serum Alcohol < 10, Monoscreen POSITIVE 07/01/19 12:10: Urine Color KENIA, Urine Clarity CLEAR, Urine pH 5, Urine Specific Henri[place] 1.015, Urine Protein 2+, Urine Glucose (UA) 1+, Urine Ketones NEGATIVE, Urine Nitrite NEGATIVE, Urine Bilirubin NEGATIVE, Urine Urobilinogen 4, Urine Leukocyte Esterase 1+, Urine RBC (Auto) 1+, Urine RBC RARE, Urine WBC 0-2, Urine Crystals NONE, Urine Bacteria NEGATIVE, Urine Casts NONE, Urine Mucus NEGATIVE, Urine Culture Indicated CULTURE PENDING, Urine Opiates Screen NEGATIVE, Urine Oxycodone Screen NEGATIVE, Urine Methadone Screen NEGATIVE, Urine Propoxyphene Screen NEGATIVE, Urine Barbiturates Screen NEGATIVE, Ur Tricyclic Antidepressants Screen NEGATIVE, Urine Phencyclidine Screen NEGATIVE, Urine Amphetamines Screen NEGATIVE, Urine Methamphetamines Screen NEGATIVE, Urine Benzodiazepines Screen POSITIVE, Urine Cocaine Screen NEGATIVE, Urine Cannabinoids Screen NEGATIVE 07/01/19 12:21: Lyme Disease Screen IgG & IgM Ab 0.18, Lyme Antibody Interpretation Negative, Ehrlichia chaffeensis IgG Antibody <1:16, Ehrlichia chaffeensis IgM Antibody <1:10, Spotted Fever Group IgG Antibody <1:16, Spotted Fever Group IgM Antibody <1:10, [place] Antibody <1:20 07/01/19 18:04: Glucometer 115 07/02/19 00:45: Glucometer 92 07/02/19 05:51: Glucometer 88 07/02/19 06:10: White Blood Count 5.2, Red Blood Count 4.46, Hemoglobin 13.9, Hematocrit 39, Mean Corpuscular Volume 87, Mean Corpuscular Hemoglobin 31, Mean Corpuscular Hemoglobin Concent 36, Red Cell Distribution Width 12.2, Platelet Count 122, M moraima Platelet Volume 10.3, Neutrophils (%) (Auto) 72, Lymphocytes (%) (Auto) 14, Monocytes (%) (Auto) 13, Eosinophils (%) (Auto) 0, Basophils (%) (Auto) 0, Neutrophils # (Auto) 3.8, Lymphocytes # (Auto) 0.7, Monocytes # (Auto) 0.7, Eosinophils # (Auto) 0.0, Basophils # (Auto) 0.0, Sodium Level 136, Potassium Level 3.9, Chloride Level 103, Carbon Dioxide Level 25, Anion Gap 8, Blood Urea Nitrogen 10, Creatinine 0.78, Estimat Glomerular Filtration Rate > 60, BUN/Creatinine Ratio 13, Glucose Level 94, Calcium Level 8.5, Corrected Calcium 8.9, Total Bilirubin 0.7, Aspartate Amino Transf (AST/SGOT) 35, Alanine Aminotransferase (ALT/SGPT) 23, Alkaline Phosphatase 62, Total Protein 6.2, Albumin 3.5, HIV (1&2) Ag and Ab Screen Referral Non-Reactive 07/02/19 13:28: Glucometer 158 07/02/19 18:38: Glucometer 103 07/02/19 23:26: Glucometer 89 07/03/19 04:56: White Blood Count 4.6, Red Blood Count 4.33, Hemoglobin 13.1, Hematocrit 38, Mean Corpuscular Volume 87, Mean Corpuscular Hemoglobin 30, Mean Corpuscular Hemoglobin Concent 35, Red Cell Distribution Width 12.1, Platelet Count 151, Mean Platelet Volume 9.8, Neutrophils (%) (Auto) 64, Lymphocytes (%) (Auto) 20, Monocytes (%) (Auto) 15, Eosinophils (%) (Auto) 1, Basophils (%) (Auto) 0, Neutrophils # (Auto) 2.9, Lymphocytes # (Auto) 0.9, Monocytes # (Auto) 0.7, Eosinophils # (Auto) 0.0, Basophils # (Auto) 0.0, Sodium Level 136, Potassium Level 4.0, Chloride Level 102, Carbon Dioxide Level 26, Anion Gap 8, Blood Urea Nitrogen 9, Creatinine 0.80, Estimat Glomerular Filtration Rate > 60, BUN/Creatinine Ratio 11, Glucose Level 91, Calcium Level 8.5, Corrected Calcium 9.1, Total Bilirubin 0.5, Aspartate Amino Transf (AST/SGOT) 36, Alanine Aminotransferase (ALT/SGPT) 26, Alkaline Phosphatase 51, Total Protein 5.9, Albumin 3.3 07/03/19 05:55: Glucometer 82 Discussion & Recommendations 2 office on Sunday. No drinking. No work until seen on Sunday Discharge Home Medications: Active Scripts Active Folic Acid 1 Mg Tablet 1 Mg PO DAILY@0700 Vitamin B-1 (Thiamine HCl) 100 Mg Tablet 100 Mg PO DAILY@0700 [Multivitamins/Minerals Therap] 1 EA Tablet 1 Ea PO DAILY@0700 Reported Citalopram HBr (Citalopram Hydrobromide) 20 Mg Tablet 20 Mg PO DAILY LAST FILLED #23 OCTOBER 2018 Chlordiazepoxide HCl 10 Mg Capsule 10 Mg PO TID 7 Days 7 DAY SUPPLY FILLED 06-30-19 Pravastatin Sodium 40 Mg Tablet 40 Mg PO HS Lisinopril 20 Mg Tablet 20 Mg PO HS Doxycycline Hyclate 100 Mg Tablet 100 Mg PO 1200,1800 10 Days 10 DAY SUPPLY FILLED 06-28-19 Instructions to patient/family Please see electronic discharge instructions given to patient. Clinical Quality Measures DVT/VTE Risk/Contraindication: Risk Factor Score Per Nursin RFS Level Per Nursing on Admit: 1=Low/No VTE PPX OSVALDO PETERSON DO Jul 04, 2019 07:47
--- NOTE | 2019-07-08 10:03 | Physician Query Clarification ---
PQ-Further Specificity Admission/Discharge Admission Date: Jul 01, 2019 at 12:25 Discharge Date: Jul 03, 2019 at 12:00 The medical record reflects the following clinical scenario: History/Risk Factors: Alcohol dependence with withdrawal, Mononucleosis, , hyponatremia Clinical Findings: confused, foggy, hallucinating, shaking, unable to get the words out Treatment: IV sodium chloride, Thiamine, multivitamin, folic acid Question: Can you further specify encephalopathy per the clinical indicators above? Please document a response in the Progress Notes or Discharge Summary. 1. Alcoholic encephalopathy 2. Toxic encehalopathy 3. metabolic encephalopathy 4. encephalopathy ruled out 5. Other, with explanation of the clinical findings. 6. Clinically undetermined, no explanation for the clinical findings. PHYSICIAN RESPONSE Can you specify per above: 1 Please remember a lack of response to the above will prompt a phone page by CDI/Coding staff. In responding to this query, please exercise your independent professional judgment. The purpose of this communication is to more accurately reflect the complexity of your patients condition. The fact that a question is asked does not imply that any particular answer is desired or expected. Thank you for your timely response to this clarification. Requestors name: Jordi THIS PHYSICIAN QUERY FORM IS A PERMANENT PART OF THE MEDICAL RECORD JORDI CAVAZOS Jul 08, 2019 10:03 OSVALDO PETERSON DO Jul 08, 2019 19:25
== END 2019-07-03 12:00 | disposition home or self-care (01) | DRG 897 ==
LOC: EDUNIT# 10:04 → ER 10:06 → 4TH 12:25
PROVIDERS: ADMIT Family Medicine; ATTEND Family Medicine
DX: F10.231 Alcohol dependence with withdrawal delirium (principal); E86.0 Dehydration; B27.90 Infectious mononucleosis, unspecified without complication; E87.1 Hypo-osmolality and hyponatremia; G31.2 Degeneration of nervous system due to alcohol; R11.10 Vomiting, unspecified; I10 Essential (primary) hypertension; E78.5 Hyperlipidemia, unspecified; Z23 Encounter for immunization; R41.0 Disorientation, unspecified; R26.81 Unsteadiness on feet; F41.9 Anxiety disorder, unspecified; R00.0 Tachycardia, unspecified; F17.220 Nicotine dependence, chewing tobacco, uncomplicated; J30.2 Other seasonal allergic rhinitis; W57.XXXD Bitten or stung by nonvenomous insect and other nonvenomous arthropods, subsequent encounter
CPT/HCPCS: 36415; 70450; 71046; 80053; 80306; 80320; 81000; 82962; 83605; 85007; 85025; 85027; 85610; 85730; 86308; 86618; 86666; 86668; 86703; 86757; 87040; 87088; 87430; 87804; 96361; 96374